=== PATIENT | female | born 1995 | race Hispanic/Latino ===

== ENCOUNTER → 2024-09-14 | Day surgery (SDC) | payer OTHER ==
[~2024-09-14] MED LIST: FENTANYL CITRATE/PF 100MCG/2 ML INJ ONE; GLYCOPYRROLATE INJ 0.2 MG/ML VIAL ONE; LIDOCAINE HCL 2% LOCAL INJ 5 ML SDV VIAL INJ ONE; MIDAZOLAM HCL 2 MG/2 ML VIAL ONE; PHENYLEPHRINE HCL 1% 10 MG/ML VIAL ONE; PROPOFOL IV EMULSION 10 MG/ML 20 ML VIAL ONE
[2024-09-14] MEDS: LACTATED RINGER'S 1,000 ML ONE (11:09)
[2024-09-14 13:32] VITALS: TEMP 98.2
[2024-09-14 14:00] VITALS: BP 105/76; PULSE 65; RESP 18; O2SAT 100
== END | disposition home or self-care (01) ==
LOC: OR 10:36
PROVIDERS: ATTEND Internal Medicine Gastroenterology
DX: K21.00 Gastro-esophageal reflux disease with esophagitis, without bleeding (principal); D12.2 Benign neoplasm of ascending colon; D12.4 Benign neoplasm of descending colon; K29.70 Gastritis, unspecified, without bleeding; B96.81 Helicobacter pylori [H. pylori] as the cause of diseases classified elsewhere; K22.10 Ulcer of esophagus without bleeding; K44.9 Diaphragmatic hernia without obstruction or gangrene; K62.5 Hemorrhage of anus and rectum; L73.2 Hidradenitis suppurativa; Z79.1 Long term (current) use of non-steroidal anti-inflammatories (NSAID); Z68.31 Body mass index [BMI] 31.0-31.9, adult
CPT/HCPCS: 43239; 45380; 45384; 81025; J2003; J2250; J2371; J2704; J3010; J7121; 45378